=== PATIENT | female | born 1975 | race African-American/Black ===

== ENCOUNTER 2018-09-12 11:07 | Inpatient (IN) | payer BC, OTHER ==
[2018-09-12] MEDS ORDERED: BUPIVACAINE HCL/PF 0.5% (5MG/ML) 10 ML VIAL ONE (14:22)
[2018-09-12] MEDS ORDERED: MIDAZOLAM HCL 2 MG/2 ML SINGLE DOSE VIAL ONE ×2 (14:28)
[2018-09-12] MEDS ORDERED: BUPIVACAINE LIPOSOME/PF (EXPAREL) 266 MG/20 ML VIAL NR ONE (14:30)
[2018-09-12] MEDS ORDERED: HEPARIN NA (PORCINE) 5,000 UNITS/ML 1ML VIAL ONE ×2 (15:00)
[2018-09-12] MEDS ORDERED: THROMBIN (BOVINE) 5,000 UNIT VIAL TP ONE ×2 (15:00→18:04)
[2018-09-12] MEDS ORDERED: PROPOFOL 20 ML ONE ×12 (15:41→18:48)
[2018-09-12] MEDS ORDERED: SUCCINYLCHOLINE CHLORIDE 200 MG/10 ML VIAL ONE (15:41)
[2018-09-12] MEDS ORDERED: KETAMINE HCL 200 MG/20 ML VIAL ONE (15:42)
[2018-09-12] MEDS ORDERED: ceFAZolin SODIUM 1 GM VIAL ONE ×2 (16:27→19:57)
[2018-09-12] MEDS ORDERED: VANCOMYCIN 1,000 MG VIAL (RESTRICTED TO ID ONLY) ONE (16:27)
[2018-09-12] MEDS ORDERED: ceFAZolin SODIUM 1 GM VIAL IVPB ONE (16:33)
[2018-09-12] MEDS ORDERED: ROCURONIUM BROMIDE 50 MG/5 ML VIAL ONE (16:33)
[2018-09-12] MEDS ORDERED: VANCOMYCIN 1,000 MG VIAL (RESTRICTED TO ID ONLY) IVPB ONE (17:18)
[2018-09-12] MEDS ORDERED: DEXAMETHASONE SOD PHOSPHATE 4 MG/1 ML VIAL ONE (17:29)
[2018-09-12] MEDS ORDERED: ONDANSETRON 4 MG/2 ML VIAL ONE ×2 (17:29→19:57)
[2018-09-12] MEDS ORDERED: DESFLURANE GAS 240 ML BOTTLE IH ONE (18:20)
[2018-09-12] MEDS ORDERED: ONDANSETRON 4 MG/2 ML VIAL IVPUSH PRN ×2 (18:41→20:06)
[2018-09-12] MEDS ORDERED: LACTATED RINGERS SOLUTION 1,000 ML IV SCH (18:45)
--- NOTE | 2018-09-12 19:58 | PN ---
Progress Note (short form) - Note Progress Note: 43F POD #0 s/p: 1. L5, S1 laminectomies 2. L5, S1 osteotomies (facetectomies) 3. L5-S1 posterior instrumentation 4. L5-S1 posterolateral arthrodesis 5. L5-S1 posterior lumbar interbody fusion 6. L5-S1 mechanical device 7. Bone allograft 8. Bone autograft 9. Bone marrow aspiration 10. Complex wound closure -Pain control: NO NSAID's. -DVT PPx: -Mechanical only: RUSTAM's, SCD's. -Chemical: None. -Incentive spirometry. -PT/OT/Rehab, OOB. -WBAT B/L LE. -NPO until flatus. -Monitor drain output. -Beavers care; d/c when ambulating. -Post-op Ancef x 2 doses. -No bending, lifting, or twisting for 9-12 months. -Care per medical hospitalist teams. -Will follow. Gonzales Swann MD (Orthopaedic Surgery).
--- NOTE | 2018-09-12 20:02 | OP ---
Operative Note - Note: Operative Date: 09/12/18 Pre-Operative Diagnosis: 1. L5-S1 lumbar intervertebral disc disorder lower extremity radiculopathy. 2. Severe lumbar spinal stenosis with neurogenic claudication. 3. Sagittal vertical malalignment/imbalance (kyphosis). 4. Neurological decline/weakness. Operation: 1. L5, S1 laminectomies. 2. L5, S1 osteotomies (facetectomies). 3. L5-S1 posterior instrumentation. 4. L5-S1 posterolateral arthrodesis. 5. L5- S1 posterior lumbar interbody fusion. 6. L5-S1 mechanical device. 7. Bone allograft. 8. Bone autograft. 9. Bone marrow aspiration. 10. Complex wound closure Post-Operative Diagnosis: Same as Pre-op Surgeon: Gonzales Swann Real Estate Processor: Santhosh Swann Anesthesiologist/ASSISTANT BOYS TRACK COACH: Em Beverly Anesthesia: General, Local (B/L TLIP Block L5-S1) Specimens Removed: L5-S1 disc Estimated Blood Loss (mls): 400 Drains & Tubes with Location: 1 x deep HemoVac Blood Volume Replaced (mls): 150 (Cell Saver) Fluid Volume Replaced (mls): 3,000 (Crystalloid) Operative Report Dictated: Yes
[2018-09-12] MEDS ORDERED: oxyCODONE HCL 5 MG TABLET PO PRN ×2 (20:06)
[2018-09-12] MEDS ORDERED: ACETAMINOPHEN INJECTION 100 ML IVPB ONE (20:30)
[2018-09-12] MEDS: ACETAMINOPHEN 1000 MG/100 ML VIAL (NON FORMULARY) IVPB SCH (20:30)
[2018-09-12] MEDS ORDERED: HYDROmorphone *PCA* 10MG/50ML DISP.SYRIN PCA ONE (20:53)
[2018-09-12] MEDS: LACTATED RINGERS SOLUTION 1,000 ML IV SCH (20:55)
[2018-09-12] MEDS: HYDROmorphone *PCA* 10MG/50ML DISP.SYRIN PCA SCH (20:55)
--- NOTE | 2018-09-12 21:30 | OP ---
DATE OF OPERATION: DATE OF DICTATION: 09/12/2018 SURGEON: Gonzales Swann MD ROLLER MAKER: Santhosh Swann MD PREOPERATIVE DIAGNOSIS: Disc prolapse L5-S1 with failed conservative treatment. POSTOPERATIVE DIAGNOSIS: Disc Prolapse L5-S1 with failed conservative treatment with associated segmental instability. ANESTHESIA: General. OPERATION PERFORMED: 1. Laminectomy, L5. 2. Posterior lumbar interbody fusion, L5-S1. 3. Pedicle screw instrumentation, L5-S1. 4. Posterolateral arthrodesis, L5-S1. 5. Complex wound closure, 15 cm. 6. Use of biplanar fluoroscopy and intraoperative neuromonitoring. 7. Use of bone marrow aspirate concentrate with autologous bone graft and allograft. ANESTHESIA: General. PROCEDURE: Patient correctly identified, brought into the operating room. Lumbar spine was prepped, routine window draping of the lumbar spine with Betadine scrub solution, wiped off with alcohol, DuraPrep applied. Timeout was called. Imaging was available. Midline incision utilized after correct alignment under fluoroscopy of skin markers for the correct incision. Subcutaneous tissue was opened to the tip of the spinous process of soft fat. Retractors placed. The muscle was dissected off the spinous processes over the lamina over the facet joint to the tip of the transverse process, exposing the transverse process of L5 and the ala of the sacrum completely. Lateral fluoroscopic x-rays revealed the correct area for appropriate dissection accordingly. A complete laminectomy was performed using Leksell rongeurs as well as Kerrison upcuts. Osteotomes were utilized to implode the lateral vertebral canal margins inwards to get to the superior facets. This was an incision made from the pars interarticularis to the inferior facet, imploding the bone inwards and then delivering it without any complications. The superior facet readily noted and completely freeing the nerve roots appropriately. The disk in L5-S1 was identified. This was a large bulging disk. It was central. Using an annulotomy with an 11 blade, the entire disk was resected. Disk shaving was to size 11. All soft tissue removed out of the disk. Pituitary rongeurs were utilized to free all of the soft tissues appropriately and remove all the soft tissues accordingly. Once this had been performed, the interspace was packed with bone that was harvested from the posterior elements and milled in the [employer]. This was packed solidly into position, and then, the cage inserted appropriately. The cage filled with graft as well. This was a Fortilink 12 x 23 mm device. Once this had been performed, verification of position on x-ray noted. Once we were happy with this, the pedicles of L5-S1 were identified using anatomic guidelines and lateral fluoroscopic x- ray. The pedicles were drilled with a 4.5 drill. Each hole palpated with the ball- tip feeler. Each screw was then inserted, measuring 6.5 x 40 mm and each one tested with intraoperative neuromonitoring, found to be completely safe in terms of neuromonitoring parameters. A 40-mm cindy was placed to the screw heads. The screw heads were tightened appropriately. Once this had been performed, the thoracodorsal fascia through a separate compartment of the wound was lifted, and 60 mL of bone marrow was aspirated from the left posterior ilium, spun down for the CD34 cells for bone marrow aspirate concentrate. This was mixed with the graft. Graft was packed into the intertransverse plane from the L5 transverse process right onto the ala of the sacrum. Solid bone grafting performed. No complications. The wounds were thoroughly lavaged. The dura was freed of any extraneous bone. Everything appeared well aligned and completely solidly stable. Once all completed, closure as follows: This was a complex closure. Muscle 1 Vicryl, fascia 1 Vicryl, subcutaneous 1 and 2-0 Vicryl, skin 3-0 Monocryl with Steri-Strips. DRAINAGE: Hemovac 1/8-inch, deep x1. COMPLICATIONS: None. Operation went well. MD JESSA Moore/[id number] MTDD
[2018-09-12] MEDS ORDERED: DULoxetine HCL 30 MG CAPSULE.DR (FP) PO SCH (22:00)
--- NOTE | 2018-09-12 22:57 | CONSULT ---
Consult Consult Specialty:: Critical Care Referred by:: Dr. Swann Reason for Consultation:: POst operative management - History of Present Illness Chief Complaint: back pain History of Present Illness: 43F with history of severe lumbar spinal stenosis, L5-S1 lumbar intervertebral disc disorder lower extremity radiculopathy, and SVT, presents to the ICU post operatively, POD #0 s/p L5, S1 laminectomies, L5, S1 osteotomies (facetectomies) , L5-S1 posterior instrumentation, L5-S1 posterolateral arthrodesis, L5-S1 posterior lumbar interbody fusion, L5-S1 mechanical device, Bone allograft, Bone autograft, Bone marrow aspiration, and Complex wound closure. Patient tolerated the procedure well and has not had any post operative complications at this time. She feels tired and would like to sleep. She complains of incisional pain. She denies nausea, vomiting, fever, chills, chest pain, or SOB. Patient had EBL of about 400ml, got 3L Crystalloid and 150ml cell saver. - History Source History Provided By: Patient, Medical Record Limitations to Obtaining History: Clinical Condition - Past Medical History Cardio/Vascular: Yes: Other (history of SVT on verapamil) ...LMP: 07/05/18 - Alcohol/Substance Use Hx Alcohol Use: No - Smoking History Smoking history: Never smoked Home Medications - Allergies Allergies/Adverse Reactions: Allergies Allergy/AdvReac Type Severity Reaction Status Date / Time Penicillins AdvReac Intermediate Yeast Unverified 07/25/13 17:24 Infection - Home Medications Home Medications: Ambulatory Orders Verapamil HCl 360 mg PO DAILY 09/18/14 Duloxetine HCl [Cymbalta] 60 mg PO HS 09/06/18 Pentosan Polysulfate Sodium [Elmiron] 100 mg PO BID 09/06/18 traMADol HCL [Ultram -] 50 mg PO TID PRN 09/09/18 Review of Systems - Review of Systems Constitutional: reports: No Symptoms Eyes: reports: No Symptoms HENT: reports: No Symptoms Neck: reports: No Symptoms Cardiovascular: reports: No Symptoms Respiratory: reports: No Symptoms Gastrointestinal: reports: No Symptoms Musculoskeletal: reports: Back Pain Neurological: reports: Parasthesia (in lower extremities) Endocrine: reports: No Symptoms Hematology/Lymphatic: reports: No Symptoms Psychiatric: reports: No Symptoms Physical Exam Vital Signs: Vital Signs Temperature 97.8 F 09/12/18 22:51 Pulse Rate 86 09/12/18 22:51 Respiratory Rate 18 09/12/18 22:51 Blood Pressure 110/83 09/12/18 22:51 O2 Sat by Pulse Oximetry (%) 100 09/12/18 22:51 Constitutional: Yes: No Distress, Calm, Obese Eyes: Yes: Conjunctiva Clear, EOM Intact HENT: Yes: Atraumatic, Normocephalic Neck: Yes: Supple, Trachea Midline Cardiovascular: Yes: Regular Rate and Rhythm, S1, S2. No: Murmur Respiratory: Yes: Regular, CTA Bilaterally (anteriorly ausculatated due to pain on movement) Gastrointestinal: Yes: Soft. No: Tenderness Extremities: Yes: Other (bilateral upper extremity sensation intact. strength 5/ 5 in upper extremities. exam of lower extrmeities limited due to recent surgery and pain but able to wiggle toes and sensation intact.) Edema: No Wound/Incision: Yes: Clean/Dry, Well Approximated, Other (drain in place with minimal to no drainage) Neurological: Yes: Alert, Oriented, Cran Nerves II-XII Intact Psychiatric: Yes: Alert, Oriented Assessment/Plan 43F with history of back pain found to have severe lumbar spinal stenosis, L5- S1 lumbar intervertebral disc disorder lower extremity radiculopathy, and SVT, is POD #0 s/p L5-S1 laminectomies. Problem List: L5-S1 lumbar intervertebral disc disorder lower extremity radiculopathy Severe lumbar spinal stenosis with neurogenic claudication Sagittal vertical malalignment/imbalance (kyphosis) Neurological decline/weakness History of SVT obesity Plan: Admit to ICU for postoperative monitoring Pain control with MARINE ELECTRONICS REPAIRER/IV tylenol-No NSAIDs DVT PPx with SCDs no chemical PPx at this time per spine surgery PT consult-WBAT bilateral lower extremities NPO until flatus per surgery Repeat CBC BMP Mg and Phos in AM monitor drain output-no output so far. Likely D/C Wednesday Perioperative Ancef D/C east when able to ambulate restart verapamil for SVT Replete electrolytes PRN Restart Cymbalta for neuropathy CCTime 60min
[2018-09-13] MEDS ORDERED: ceFAZolin SODIUM 1 GM VIAL ONE ×3 (01:22→17:28)
[2018-09-13] MEDS ORDERED: DEXTROSE 5%-WATER - 50 ML IVPB ONE ×3 (01:22→17:29)
[2018-09-13] MEDS: CEFAZOLIN 1 GM in DEXTROSE 5%-WATER - 50 ML IVPB SCH ×3 (01:26→17:46)
[2018-09-13] MEDS: ACETAMINOPHEN 1000 MG/100 ML VIAL (NON FORMULARY) IVPB SCH ×4 (04:15→20:40)
[2018-09-13] MEDS ORDERED: METOPROLOL TARTRATE 5 MG/5 ML VIAL ONE (05:36)
[2018-09-13] MEDS ORDERED: METOPROLOL TARTRATE 5 MG/5 ML VIAL IVPUSH ONE (05:41)
[2018-09-13] MEDS: VERAPAMIL HCL 120 MG E.R. TABLET PO SCH (06:02)
[2018-09-13] MEDS: VERAPAMIL HCL 240 MG E.R. TABLET (FP) PO SCH (06:02)
[2018-09-13 06:16] LABS: HEMATOCRIT 37.6 % (32.4-45.2); MCH 28.5 pg (25.7-33.7); MCHC 31.9 g/dl (32.0-36.0); MEAN CELL VOLUME 89.3 fl (80-96); MEAN PLT VOLUME 9.2 fl (7.5-11.1); PLATELET COUNT 208 K/MM3 (134-434); RBC 4.21 M/mm3 (3.60-5.2); WHITE BLOOD COUNT 13.1 K/mm3 (4.0-10.0)
[2018-09-13 06:29] LABS: ANION GAP 10 MMOL/L (8-16); BLOOD UREA NITROGEN 9 mg/dL (7-18); CALCIUM 8.7 mg/dL (8.5-10.1); CHLORIDE 105 mmol/L (98-107); CO2 26 mmol/L (21-32); CREATININE 0.8 mg/dL (0.55-1.3); GLUCOSE,RANDOM 154 mg/dL (74-106); MAGNESIUM 1.8 mg/dL (1.8-2.4); PHOSPHOROUS 4.7 mg/dL (2.5-4.9); POTASSIUM 3.9 mmol/L (3.5-5.1); SODIUM 140 mmol/L (136-145)
[2018-09-13] MEDS ORDERED: PT OWN MED DRAWER 7, Y5N ONE (08:44)
[2018-09-13] MEDS ORDERED: VERAPAMIL HCL 120 MG E.R. TABLET PO SCH (10:00)
[2018-09-13] MEDS ORDERED: VERAPAMIL HCL 240 MG E.R. TABLET (FP) PO SCH (10:00)
[2018-09-13] MEDS ORDERED: VERAPAMIL HCL 360 MG PO SCH (10:00)
[2018-09-13] MEDS ORDERED: DULoxetine HCL 30 MG CAPSULE.DR (FP) PO ONE ×2 (10:34→22:00)
--- NOTE | 2018-09-13 12:46 | PN ---
Teaching Attending Note Name of Resident: Pete Lucero ATTENDING PHYSICIAN STATEMENT I saw and evaluated the patient. I reviewed the resident's note and discussed the case with the resident. I agree with the resident's findings and plan as documented. SUBJECTIVE: Pt seen and examined in the ICU. Pain controlled with FORENSIC PATHOLOGIST pump. No flatus yet. No nausea or vomiting. No fevers or chills. Minimal output in drain. OBJECTIVE: Vital Signs Period Temp Pulse Resp BP Sys/Jordan Pulse Ox Last 24 Hr 97.8 F-100.1 F 82-140 09-08 98-144/64-98 100-100 Intake & Output 09/10/18 09/11/18 09/12/18 09/13/18 23:59 23:59 23:59 23:59 Intake Total 3625 1150 Output Total 1450 2800 Balance 2175 -1650 Gen: NAD at rest Heart: tachycardic, regular Lung: decreased breath sounds at the bases Abd: soft, nontender Ext: no edema CBC, BMP 09/13/18 05:30 09/13/18 05:30 Active Medications Acetaminophen (Ofirmev Injection -) 1,000 mg IVPB Q8H HAY Stop: 09/14/18 12:16 Last Admin: 09/13/18 04:15 Dose: 1,000 mg Diphenhydramine HCl (Benadryl Injection -) 12.5 mg IVPUSH ONCE PRN PRN Reason: FOR ITCHING Duloxetine HCl (Cymbalta -) 60 mg PO HS HAY Duloxetine HCl (Cymbalta -) 30 mg PO ONCE ONE Stop: 09/13/18 22:01 Hydromorphone HCl (Dilaudid Tung Nut Grower -) 0 mg FORENSIC PATHOLOGIST FORENSIC PATHOLOGIST HAY; Protocol Stop: 09/19/18 20:17 Last Admin: 09/12/18 20:55 Dose: 10 mg Lactated Ringer's (Lactated Ringers Solution) 1,000 mls @ 125 mls/hr IV ASDIR HAY Last Admin: 09/12/18 20:55 Dose: 125 mls/hr Cefazolin Sodium 1 gm/ (Dextrose) 50 mls @ 100 mls/hr IVPB Q8H-IV AHY Stop: 09/13/18 18:29 Last Admin: 09/13/18 10:36 Dose: 100 mls/hr Ondansetron HCl (Zofran Injection) 4 mg IVPUSH Q6H PRN PRN Reason: NAUSEA AND/OR VOMITING Oxycodone HCl (Roxicodone -) 5 mg PO Q4H PRN PRN Reason: PAIN LEVEL 1-5 Oxycodone HCl (Roxicodone -) 10 mg PO Q4H PRN PRN Reason: PAIN LEVEL 6 - 10 Verapamil HCl (Calan Sr -) 240 mg PO DAILY@0700 [facility] Last Admin: 09/13/18 06:02 Dose: 240 mg Verapamil HCl (Calan Sr -) 120 mg PO DAILY@0700 [facility] Last Admin: 09/13/18 06:02 Dose: 120 mg ASSESSMENT AND PLAN: L5-S1 Lumbar Intervertebral Disc Disorder Severe Lumbar Spinal Stenosis with Neurogenic Claudication s/p L5-S1 Laminectomies/PLIF PSVT Anxiety - pain control - incentive spirometry - mary regimen - PO when flatus - d/c east when OOB - rehab/PT - rate control - DVT prophylaxis
--- NOTE | 2018-09-13 13:09 | PN ---
Physical Exam: SUBJECTIVE: Patient seen and examined at bedside. patient had an episode of SVT overnight which made her very anxious ; her pain is well controlled with POWER BRAKE REBUILDER pump she denies any CP/SOB/N/V fevers or chills- she has not passed flatus yet as of now. OBJECTIVE: Vital Signs Period Temp Pulse Resp BP Sys/Jordan Pulse Ox Last 24 Hr 97.8 F-100.1 F 82-140 11-22 98-144/64-98 100-100 GENERAL: The patient is awake, alert, and fully oriented, in no acute distress. EYES: no scleral icterus NECK: no JVD, no lymphadenopathy LUNGS: CTA B/L; nop rales, rhonchi or wheezing HEART: tachycardic, regularl rhythm, S1, S2 without murmur, rub or gallop. ABDOMEN: Soft, nontender, nondistended, normoactive bowel sounds, no guarding, no rebound, no hepatosplenomegaly, no masses. EXTREMITIES: 2+ pulses, warm, well-perfused, no edema. some pain/tenderness at incision site NEUROLOGICAL: sensation intact B/L; strength 5/5 B/L PSYCH: Normal mood, normal affect. SKIN: Warm, dry, normal turgor, no rashes or lesions noted Laboratory Results - last 24 hr 09/12/18 09/13/18 09/13/18 12:10 05:30 05:30 WBC 13.1 H RBC 4.21 Hgb 12.0 Hct 37.6 MCV 89.3 MCH 28.5 MCHC 31.9 L RDW 15.0 Plt Count 208 MPV 9.2 Sodium 140 Potassium 3.9 Chloride 105 Carbon Dioxide 26 Anion Gap 10 BUN 9 Creatinine 0.8 Creat Clearance w eGFR > 60 Random Glucose 154 H Calcium 8.7 Phosphorus 4.7 Magnesium 1.8 Blood Type B POSITIVE Active Medications Generic Name Dose Route Start Last Admin Trade Name Freq PRN Reason Stop Dose Admin Acetaminophen 1,000 mg 09/12/18 20:15 09/13/18 04:15 Ofirmev Injection - IVPB 09/14/18 12:16 1,000 mg Q8H HAY Administration Diphenhydramine HCl 12.5 mg 09/12/18 20:16 Benadryl Injection - IVPUSH ONCE PRN FOR ITCHING Duloxetine HCl 60 mg 09/14/18 22:00 Cymbalta - PO HS HAY Duloxetine HCl 30 mg 09/13/18 22:00 Cymbalta - PO 09/13/18 22:01 ONCE ONE Hydromorphone HCl 0 mg 09/12/18 20:30 09/12/18 20:55 Dilaudid Micro Computer Data Processor - POWER BRAKE REBUILDER 09/19/18 20:17 10 mg POWER BRAKE REBUILDER HAY Administration Protocol Lactated Ringer's 1,000 mls @ 125 mls/hr 09/12/18 20:15 09/12/18 20:55 Lactated Ringers Solution IV 125 mls/hr ASDIR HAY Administration Cefazolin Sodium 1 gm/ 50 mls @ 100 mls/hr 09/13/18 02:00 09/13/18 10:36 Dextrose IVPB 09/13/18 18:29 100 mls/hr Q8H-IV HAY Administration Ondansetron HCl 4 mg 09/12/18 20:06 Zofran Injection IVPUSH Q6H PRN NAUSEA AND/OR VOMITING Oxycodone HCl 5 mg 09/12/18 20:06 Roxicodone - PO Q4H PRN PAIN LEVEL 1-5 Oxycodone HCl 10 mg 09/12/18 20:06 Roxicodone - PO Q4H PRN PAIN LEVEL 6 - 10 Verapamil HCl 240 mg 09/13/18 07:00 09/13/18 06:02 Calan Sr - PO 240 mg DAILY@0700 HAY Administration Verapamil HCl 120 mg 09/13/18 07:00 09/13/18 06:02 Calan Sr - PO 120 mg DAILY@0700 HAY Administration ASSESSMENT/PLAN: 43 y/o female with PMH of SVT, back pain, found to have severe lumbar spinal stenosis, L5-S1 lumbar intervertebral disc disorder with lower extremity radiculopathy is POD #1 from L5-S1 laminectomies, arthrodesis, lumbar interbody fusion with bone allograft. #L5-S1 laminectomies, arthrodesis, lumbar interbody fusion POD #1 -patient has not passed flatus yet; NPO for now -pain control with POWER BRAKE REBUILDER/IV tylenol until patient can tolerate PO -Zofran PRN for nausea -PT eval -remove east once out of bed -Cymbalta for neuropathy #SVT -c/w verapamil 360 daily -monitor HR patients upholstery auto trimmer is Dr. Felipe Howard in [place] F/E/N LR @125mls/hr monitor electrolytes NPO until flatus DVT PPX SCD's Problem List - Problems (1) Lumbar spinal stenosis Code(s): M48.061 - SPINAL STENOSIS, LUMBAR REGION WITHOUT NEUROGENIC TYESHA Visit type - Emergency Visit Emergency Visit: Yes ED Registration Date: 09/12/18 Care time: The patient presented to the Emergency Department on the above date and was hospitalized for further evaluation of their emergent condition. - New Patient This patient is new to me today: Yes Date on this admission: 09/13/18 - Critical Care Critical Care patient: No
[2018-09-13] MEDS ORDERED: HYDROmorphone *PCA* 10MG/50ML DISP.SYRIN PCA ONE (13:44)
[2018-09-13] MEDS: HYDROmorphone *PCA* 10MG/50ML DISP.SYRIN PCA SCH (13:46)
--- NOTE | 2018-09-13 14:17 | PN ---
Progress Note, Physician Chief Complaint: s/p L5-S1 fusion post op day one History of Present Illness: TLIP block for post op pain control and SOCIAL PSYCHOLOGIST post op day one - Current Medication List Current Medications: Active Medications Acetaminophen (Ofirmev Injection -) 1,000 mg IVPB Q8H [facility] Stop: 09/14/18 12:16 Last Admin: 09/13/18 13:21 Dose: 1,000 mg Diphenhydramine HCl (Benadryl Injection -) 12.5 mg IVPUSH ONCE PRN PRN Reason: FOR ITCHING Duloxetine HCl (Cymbalta -) 60 mg PO HS HAY Duloxetine HCl (Cymbalta -) 30 mg PO ONCE ONE Stop: 09/13/18 22:01 Hydromorphone HCl (Dilaudid Station Operator -) 0 mg SOCIAL PSYCHOLOGIST SOCIAL PSYCHOLOGIST [facility]; Protocol Stop: 09/19/18 20:17 Last Admin: 09/13/18 13:46 Dose: 0.2 mg Lactated Ringer's (Lactated Ringers Solution) 1,000 mls @ 125 mls/hr IV ASDIR HAY Last Admin: 09/12/18 20:55 Dose: 125 mls/hr Cefazolin Sodium 1 gm/ (Dextrose) 50 mls @ 100 mls/hr IVPB Q8H-IV HAY Stop: 09/13/18 18:29 Last Admin: 09/13/18 10:36 Dose: 100 mls/hr Ondansetron HCl (Zofran Injection) 4 mg IVPUSH Q6H PRN PRN Reason: NAUSEA AND/OR VOMITING Oxycodone HCl (Roxicodone -) 5 mg PO Q4H PRN PRN Reason: PAIN LEVEL 1-5 Oxycodone HCl (Roxicodone -) 10 mg PO Q4H PRN PRN Reason: PAIN LEVEL 6 - 10 Verapamil HCl (Calan Sr -) 240 mg PO DAILY@0700 [facility] Last Admin: 09/13/18 06:02 Dose: 240 mg Verapamil HCl (Calan Sr -) 120 mg PO DAILY@0700 [facility] Last Admin: 09/13/18 06:02 Dose: 120 mg - Objective Vital Signs: Vital Signs Temperature 99.4 F 09/13/18 13:43 Pulse Rate 110 H 09/13/18 13:46 Respiratory Rate 15 09/13/18 13:46 Blood Pressure 134/89 09/13/18 13:46 O2 Sat by Pulse Oximetry (%) 100 09/13/18 07:38 Constitutional: Yes: Well Nourished Cardiovascular: Yes: WNL Respiratory: Yes: WNL Gastrointestinal: Yes: WNL Labs: CBC, BMP 09/13/18 05:30 09/13/18 05:30 Assessment/Plan No adverse effect of anesthetic, no nausea or vomiting, pain controlled, had episode of SVT overnight. stated that she is on medication for that chronically , now resolved. will continue SOCIAL PSYCHOLOGIST, and will follow the patient until SOCIAL PSYCHOLOGIST is discontinued
[2018-09-13] MEDS ORDERED: DOCUSATE SODIUM 100 MG CAPSULE (FP) PO PRN (14:38)
[2018-09-13] MEDS ORDERED: SENNOSIDES 8.6MG TABLET (FP) PO PRN (14:39)
--- NOTE | 2018-09-13 14:40 | PN ---
Physical Exam: SUBJECTIVE: Pt seen and examined in the ICU. POD #1 s/p L5-S1 laminectomies. Pain controlled with IN STORE BANKER pump. No flatus yet. No nausea or vomiting. No fevers or chills. Minimal output in drain. Overnight was tachy SVT, ctl w/ lopressor IV and now home verapamil resumed OBJECTIVE: Vital Signs Period Temp Pulse Resp BP Sys/Jordan Pulse Ox Last 24 Hr 97.8 F-100.1 F 82-140 11-22 98-144/64-98 100-100 GENERAL: AOX3 NAD HEAD: NCAT EYES: PERRL, extraocular movements intact, sclera anicteric, conjunctiva clear. No ptosis. ENT: Ears normal, nares patent, oropharynx clear without exudates, MMM NECK: Trachea midline, full range of motion, supple. LUNGS: CTAB HEART: RRR, S1, S2 without murmur, rub or gallop. ABDOMEN: Soft, NTND, normoactive bowel sounds EXTREMITIES: 2+ pulses, warm, well-perfused, no edema. NEUROLOGICAL: Cranial nerves II through XII grossly intact. Normal speech, gait not observed. strength sensation grossly intact PSYCH: Normal mood, normal affect. SKIN: Warm, dry, normal turgor, no rashes or lesions noted Laboratory Results - last 24 hr 09/13/18 09/13/18 05:30 05:30 WBC 13.1 H RBC 4.21 Hgb 12.0 Hct 37.6 MCV 89.3 MCH 28.5 MCHC 31.9 L RDW 15.0 Plt Count 208 MPV 9.2 Sodium 140 Potassium 3.9 Chloride 105 Carbon Dioxide 26 Anion Gap 10 BUN 9 Creatinine 0.8 Creat Clearance w eGFR > 60 Random Glucose 154 H Calcium 8.7 Phosphorus 4.7 Magnesium 1.8 Active Medications Generic Name Dose Route Start Last Admin Trade Name Freq PRN Reason Stop Dose Admin Acetaminophen 1,000 mg 09/12/18 20:15 09/13/18 13:21 Ofirmev Injection - IVPB 09/14/18 12:16 1,000 mg Q8H HAY Administration Diphenhydramine HCl 12.5 mg 09/12/18 20:16 Benadryl Injection - IVPUSH ONCE PRN FOR ITCHING Duloxetine HCl 60 mg 09/14/18 22:00 Cymbalta - PO HS HAY Duloxetine HCl 30 mg 09/13/18 22:00 Cymbalta - PO 09/13/18 22:01 ONCE ONE Hydromorphone HCl 0 mg 09/12/18 20:30 09/13/18 13:46 Dilaudid Cooker Sulfate - IN STORE BANKER 09/19/18 20:17 0.2 mg IN STORE BANKER HAY Administration Protocol Lactated Ringer's 1,000 mls @ 125 mls/hr 09/12/18 20:15 09/12/18 20:55 Lactated Ringers Solution IV 125 mls/hr ASDIR HAY Administration Cefazolin Sodium 1 gm/ 50 mls @ 100 mls/hr 09/13/18 02:00 09/13/18 10:36 Dextrose IVPB 09/13/18 18:29 100 mls/hr Q8H-IV HAY Administration Ondansetron HCl 4 mg 09/12/18 20:06 Zofran Injection IVPUSH Q6H PRN NAUSEA AND/OR VOMITING Oxycodone HCl 5 mg 09/12/18 20:06 Roxicodone - PO Q4H PRN PAIN LEVEL 1-5 Oxycodone HCl 10 mg 09/12/18 20:06 Roxicodone - PO Q4H PRN PAIN LEVEL 6 - 10 Verapamil HCl 240 mg 09/13/18 07:00 09/13/18 06:02 Calan Sr - PO 240 mg DAILY@0700 HAY Administration Verapamil HCl 120 mg 09/13/18 07:00 09/13/18 06:02 Calan Sr - PO 120 mg DAILY@0700 HAY Administration ASSESSMENT/PLAN: 43 y/o female with PMH of SVT, back pain, found to have severe lumbar spinal stenosis, L5-S1 lumbar intervertebral disc disorder with lower extremity radiculopathy is POD #1 from L5-S1 laminectomies, arthrodesis, lumbar interbody fusion with bone allograft. NEURO/ORTHO/POST-OP/RENAL L5-S1 laminectomies, arthrodesis, lumbar interbody fusion POD #1 -patient has not passed flatus yet; NPO for now -Zofran PRN for nausea -Cymbalta for neuropathy -Pain control with IN STORE BANKER/IV tylenol-No NSAIDs -bowel regimen -DVT PPx with SCDs no chemical PPx at this time per spine surgery -PT consult-WBAT bilateral lower extremities -monitor drain output-no output so far. Likely D/C Wednesday -s/p Perioperative Ancef -D/C east when able to ambulate -restart verapamil for SVT -monitor Cr -Incentive spirometry. -No bending, lifting, or twisting for 9-12 months. CARDIAC SVT -c/w verapamil 360 daily -monitor HR patients financial advocate is Dr. Felipe Howard in [place] Maintain MAP>65 cardiac monitoring F/E/N LR @125mls/hr monitor electrolytes NPO until flatus ppx SCD's Dispo ICU monitoring Visit type - Emergency Visit Emergency Visit: Yes ED Registration Date: 09/12/18 Care time: The patient presented to the Emergency Department on the above date and was hospitalized for further evaluation of their emergent condition. - New Patient This patient is new to me today: Yes Date on this admission: 09/13/18 - Critical Care Critical Care patient: Yes Total Critical Care Time (in minutes): 38 Critical Care Statement: The care of this patient involved high complexity decision making to prevent further life threatening deterioration of the patient 's condition and/or to evaluate & treat vital organ system(s) failure or risk of failure.
--- NOTE | 2018-09-13 15:31 | PN ---
Teaching Attending Note Name of Resident: Marguerite Venegas ATTENDING PHYSICIAN STATEMENT I saw and evaluated the patient. I reviewed the resident's note and discussed the case with the resident. I agree with the resident's findings and plan as documented. SUBJECTIVE: c/o incision pain and pain on movement. states pain is controlled with PAROLE SUPERVISOR pump. has not passed flatus. denies CP, SOB, fever, chills, N/V/C/D OBJECTIVE: Last Vital Signs Temp Pulse Resp BP Pulse Ox 99.4 F 90 16 134/89 100 09/13/18 14:00 09/13/18 14:00 09/13/18 14:00 09/13/18 14:00 09/13/18 07:38 General NAD CV S1 S2 RRR no murmur/rub/gallop Lungs CTA B/L no wheezing/rales/rhonchi abdomen soft NT/ND Extremities pulses intact. difficulty moving LE due to back pain pt was not rolled due to severe pain ASSESSMENT AND PLAN: 43yo F with PMH SVT and severe lumbar stenosis and radiculopathy who came in for laminectomy 1. Severe lumbar stenosis with radiulopathy- s/p L5, S1 laminectomies, L5, S1 osteotomies (facetectomies), L5-S1 posterior instrumentation, L5-S1 posterolateral arthrodesis, L5-S1 posterior lumbar interbody fusion, L5-S1 mechanical device, Bone allograft, Bone autograft, Bone marrow aspiration, and Complex wound closure 09/12. on PAROLE SUPERVISOR pump. has not passed flatus. NPO until flatus. Bea[place] until ambulating. hemovac in place. post-op abx. further management per ortho. PT eval. may require VARGAS on discharge 2. leukcytosis- likely stress induced. no signs of infection. afebrile. received abx post-operatively. would hold further abx at this time 3. SVT- controlled. cont home medications 4. DVT ppx- SCD. hold pharmacolgic anticoagulation in setting of recent surgery 5. MICU monitoring The care of this patient involved high complexity decision making to prevent further life threatening deterioration of the patient's condition and/or to evaluate & treat vital organ system(s) failure or risk of failure. 45 mins
[2018-09-13] MEDS ORDERED: ALBUTEROL SO4 2.5/IPRATROPIUM 0.5 INH SOL 3 ML VIAL.NEB. NEB ONE (16:39)
--- NOTE | 2018-09-13 19:48 | PN ---
Progress Note (short form) - Note Progress Note: POD # 1 Original pain gone C/O incisional pain No leg pain Vitals all stable as per chart. CVS Stable Resp Clear ABD Soft no flatus as yet MSkeletal Drain in situ Wound dry. Neuro At baseline PLAN Will pull drain tomorrow Pain MX PT mobilize FWBAT D/c planning
[2018-09-13] MEDS: LACTATED RINGERS SOLUTION 1,000 ML IV SCH (20:15)
[2018-09-13] MEDS ORDERED: DULoxetine HCL 30 MG CAPSULE.DR (FP) PO SCH (22:00)
[2018-09-13] MEDS: ELMIRON 100 MG PO SCH (22:13)
[2018-09-14] MEDS ORDERED: METOPROLOL TARTRATE 5 MG/5 ML VIAL IVPUSH ONE (00:10)
[2018-09-14] MEDS: ACETAMINOPHEN 1000 MG/100 ML VIAL (NON FORMULARY) IVPB SCH ×2 (04:20→12:47)
[2018-09-14 06:34] LABS: HEMATOCRIT 33.5 % (32.4-45.2); MCH 29.1 pg (25.7-33.7); MCHC 32.8 g/dl (32.0-36.0); MEAN CELL VOLUME 88.7 fl (80-96); MEAN PLT VOLUME 8.9 fl (7.5-11.1); PLATELET COUNT 177 K/MM3 (134-434); RBC 3.78 M/mm3 (3.60-5.2); RDW 15.2 % (11.6-15.6); WHITE BLOOD COUNT 8.2 K/mm3 (4.0-10.0)
[2018-09-14] MEDS: VERAPAMIL HCL 240 MG E.R. TABLET (FP) PO SCH (06:34)
[2018-09-14] MEDS: VERAPAMIL HCL 120 MG E.R. TABLET PO SCH (06:34)
[2018-09-14 08:15] LABS: ALBUMIN 2.8 g/dl (3.4-5.0); ALK PHOS 79 U/L (45-117); ANION GAP 6 MMOL/L (8-16); BILIRUBIN,TOTAL 0.7 mg/dL (0.2-1); BLOOD UREA NITROGEN 8 mg/dL (7-18); CALCIUM 8.3 mg/dL (8.5-10.1); CHLORIDE 102 mmol/L (98-107); CO2 29 mmol/L (21-32); CREATININE 0.7 mg/dL (0.55-1.3); GLUCOSE,RANDOM 111 mg/dL (74-106); MAGNESIUM 1.9 mg/dL (1.8-2.4); PHOSPHOROUS 3.6 mg/dL (2.5-4.9); SGOT/AST 42 U/L (15-37); SGPT/ALT 23 U/L (13-61); SODIUM 137 mmol/L (136-145); TOT PROT 6.1 g/dl (6.4-8.2)
--- NOTE | 2018-09-14 09:03 | PN ---
Physical Exam: SUBJECTIVE: Patient seen and examined at beside. patient had some shortness of breath overnight and did not receive her incentive spirometer until late last night. she also had en episode of an increased HR overnight where she needed to receive 5mg IV metoprolol tartrate. otherwise in terms of her pain she denies having any. patients drain was removed. OBJECTIVE: Vital Signs Period Temp Pulse Resp BP Sys/Jordan Pulse Ox Last 24 Hr 98.2 F-100.1 F 83-143 12-22 107-141/65-98 100 GENERAL: The patient is awake, alert, and fully oriented, in no acute distress. EYES: no scleral icterus NECK: no JVD, no lymphadenopathy LUNGS:CTA B/L; no rales, rhonchi or wheezing HEART: tachycardic, regular rhythm, S1, S2 without murmur, rub or gallop. ABDOMEN: Soft, nontender, nondistended, normoactive bowel sounds, no guarding, no rebound, no hepatosplenomegaly, no masses. EXTREMITIES: 2+ pulses, warm, well-perfused, no edema; slight pain at incision sight. NEUROLOGICAL: sensation intact B/L; strength 5/5 B/L SKIN: Warm, dry, normal turgor, no rashes or lesions noted Laboratory Results - last 24 hr 09/14/18 09/14/18 05:30 05:30 WBC 8.2 RBC 3.78 Hgb 11.0 Hct 33.5 MCV 88.7 MCH 29.1 MCHC 32.8 RDW 15.2 Plt Count 177 MPV 8.9 Sodium 137 Potassium 4.0 Chloride 102 Carbon Dioxide 29 Anion Gap 6 L BUN 8 Creatinine 0.7 Creat Clearance w eGFR > 60 Random Glucose 111 H Calcium 8.3 L Phosphorus 3.6 Magnesium 1.9 Total Bilirubin 0.7 AST 42 H ALT 23 Alkaline Phosphatase 79 Total Protein 6.1 L Albumin 2.8 L Active Medications Generic Name Dose Route Start Last Admin Trade Name Freq PRN Reason Stop Dose Admin Acetaminophen 1,000 mg 09/12/18 20:15 09/14/18 04:20 Ofirmev Injection - IVPB 09/14/18 12:16 1,000 mg Q8H HAY Administration Diphenhydramine HCl 12.5 mg 09/12/18 20:16 Benadryl Injection - IVPUSH ONCE PRN FOR ITCHING Docusate Sodium 100 mg 09/13/18 14:38 09/14/18 07:51 Colace - PO 100 mg BID PRN Administration CONSTIPATION Duloxetine HCl 60 mg 09/13/18 22:00 09/13/18 22:12 Cymbalta - PO 60 mg HS HAY Administration Hydromorphone HCl 0 mg 09/12/18 20:30 09/13/18 13:46 Dilaudid Manager Hematology - CLOTHING WORKER 09/19/18 20:17 0.2 mg CLOTHING WORKER HAY Administration Protocol Lactated Ringer's 1,000 mls @ 125 mls/hr 09/12/18 20:15 09/13/18 20:15 Lactated Ringers Solution IV 125 mls/hr ASDIR HAY Administration Patient's Own 1 each 09/13/18 22:00 09/13/18 22:13 Medication (Non- PO 1 each Formulary) (Elmiron BID HAY Administration 100mg Cap) Ondansetron HCl 4 mg 09/12/18 20:06 Zofran Injection IVPUSH Q6H PRN NAUSEA AND/OR VOMITING Oxycodone HCl 5 mg 09/12/18 20:06 Roxicodone - PO Q4H PRN PAIN LEVEL 1-5 Oxycodone HCl 10 mg 09/12/18 20:06 Roxicodone - PO Q4H PRN PAIN LEVEL 6 - 10 Senna 2 tab 09/13/18 14:39 Senna - PO HS PRN CONSTIPATION Verapamil HCl 240 mg 09/13/18 07:00 09/14/18 06:34 Calan Sr - PO 240 mg DAILY@0700 HAY Administration Verapamil HCl 120 mg 09/13/18 07:00 09/14/18 06:34 Calan Sr - PO 120 mg DAILY@0700 HAY Administration ASSESSMENT/PLAN: 43 y/o female with PMH of SVT, back pain, found to have severe lumbar spinal stenosis, L5-S1 lumbar intervertebral disc disorder with lower extremity radiculopathy is POD #2 from L5-S1 laminectomies, arthrodesis, lumbar interbody fusion with bone allograft. #L5-S1 laminectomies, arthrodesis, lumbar interbody fusion POD #2 -patient has not passed flatus yet; NPO for now except meds -senna and colace for bowel regimen -d/c CLOTHING WORKER and c/w PO pain meds -incentive spirometer -Zofran PRN for nausea -Patient saw PT yesterday and stoof -remove east once out of bed -Cymbalta for neuropathy #SVT -c/w verapamil 360 daily -monitor HR patients fleet assistant is Dr. Felipe [place] F/E/N LR @125mls/hr monitor electrolytes NPO until flatus DVT PPX SCD's Problem List - Problems (1) Lumbar spinal stenosis Code(s): M48.061 - SPINAL STENOSIS, LUMBAR REGION WITHOUT NEUROGENIC TYESHA Visit type - Emergency Visit Emergency Visit: Yes ED Registration Date: 09/12/18 Care time: The patient presented to the Emergency Department on the above date and was hospitalized for further evaluation of their emergent condition. - New Patient This patient is new to me today: No - Critical Care Critical Care patient: No
[2018-09-14] MEDS ORDERED: POLYETHYLENE GLYCOL 3350 119 GM BTL PO ONE (09:33)
[2018-09-14] MEDS: ELMIRON 100 MG PO SCH (09:49)
[2018-09-14] MEDS ORDERED: BENZOCAINE/MENTH/CETYLPYRD CL 1 EACH LOZENGE MM PRN (10:29)
--- NOTE | 2018-09-14 11:45 | PN ---
Teaching Attending Note Name of Resident: Pete Lucero ATTENDING PHYSICIAN STATEMENT I saw and evaluated the patient. I reviewed the resident's note and discussed the case with the resident. I agree with the resident's findings and plan as documented. SUBJECTIVE: Pt seen and examined in the ICU. Pain controlled. No flatus yet. Stood with PT yesterday. No fevers or chills. Heart rates variable. OBJECTIVE: Vital Signs Period Temp Pulse Resp BP Sys/Jodran Pulse Ox Last 24 Hr 98.2 F-100.0 F 83-143 12-22 102-141/65-98 100 Intake & Output 09/11/18 09/12/18 09/13/18 09/14/18 23:59 23:59 23:59 23:59 Intake Total 3625 2750 1700 Output Total 1450 5200 1100 Balance 2175 -2450 600 Weight 82.3 kg Gen: NAD at rest Heart: RRR Lung: decreased breath sounds at the bases Abd: soft, nontender Ext: no edema CBC, BMP 09/14/18 05:30 09/14/18 05:30 Active Medications Acetaminophen (Ofirmev Injection -) 1,000 mg IVPB Q8H HAY Stop: 09/14/18 12:16 Last Admin: 09/14/18 04:20 Dose: 1,000 mg Benzocaine/Menthol (Cepacol Lozenge -) 1 each MM PRN PRN PRN Reason: SORE THROAT Diphenhydramine HCl (Benadryl Injection -) 12.5 mg IVPUSH ONCE PRN PRN Reason: FOR ITCHING Docusate Sodium (Colace -) 100 mg PO BID PRN PRN Reason: CONSTIPATION Last Admin: 09/14/18 07:51 Dose: 100 mg Duloxetine HCl (Cymbalta -) 60 mg PO HS HAY Last Admin: 09/13/18 22:12 Dose: 60 mg Hydromorphone HCl (Dilaudid [employer] -) 0 mg PATIENT LIAISON PATIENT LIAISON HAY; Protocol Stop: 09/19/18 20:17 Last Admin: 09/13/18 13:46 Dose: 0.2 mg Lactated Ringer's (Lactated Ringers Solution) 1,000 mls @ 125 mls/hr IV ASDIR HAY Last Admin: 09/13/18 20:15 Dose: 125 mls/hr Patient's Own Medication (Non- Formulary) (Elmiron 100mg Cap) 1 each PO BID [facility] Last Admin: 09/14/18 09:49 Dose: 1 each Ondansetron HCl (Zofran Injection) 4 mg IVPUSH Q6H PRN PRN Reason: NAUSEA AND/OR VOMITING Oxycodone HCl (Roxicodone -) 5 mg PO Q4H PRN PRN Reason: PAIN LEVEL 1-5 Oxycodone HCl (Roxicodone -) 10 mg PO Q4H PRN PRN Reason: PAIN LEVEL 6 - 10 Senna (Senna -) 2 tab PO HS PRN PRN Reason: CONSTIPATION Verapamil HCl (Calan Sr -) 240 mg PO DAILY@0700 [facility] Last Admin: 09/14/18 06:34 Dose: 240 mg Verapamil HCl (Calan Sr -) 120 mg PO DAILY@0700 [facility] Last Admin: 09/14/18 06:34 Dose: 120 mg ASSESSMENT AND PLAN: L5-S1 Lumbar Intervertebral Disc Disorder Severe Lumbar Spinal Stenosis with Neurogenic Claudication s/p L5-S1 Laminectomies/PLIF PSVT Anxiety - pain control - incentive spirometry - bowel regimen - PO when flatus - d/c east when OOB - rehab/PT - rate control - DVT prophylaxis - can monitor on telemetry
--- NOTE | 2018-09-14 12:04 | PN ---
Physical Exam: SUBJECTIVE: Pt seen and examined in the ICU. POD #2 s/p L5-S1 laminectomies. Pain controlled with LOG FEEDER pump. No flatus yet. No nausea or vomiting. No fevers or chills. Minimal output in drain. Overnight was tachy SVT, ctl w/ lopressor IV and home verapamil. Stood up with PT yesterday OBJECTIVE: Vital Signs Period Temp Pulse Resp BP Sys/Jordan Pulse Ox Last 24 Hr 98.2 F-100.0 F 83-143 12-22 102-141/65-91 100 GENERAL: AOX3 NAD HEAD: NCAT EYES: PERRL, extraocular movements intact, sclera anicteric, conjunctiva clear. No ptosis. ENT: Ears normal, nares patent, oropharynx clear without exudates, MMM NECK: Trachea midline, full range of motion, supple. LUNGS: CTAB HEART: RRR, S1, S2 without murmur, rub or gallop. ABDOMEN: Soft, NTND, normoactive bowel sounds EXTREMITIES: 2+ pulses, warm, well-perfused, no edema. NEUROLOGICAL: Cranial nerves II through XII grossly intact. Normal speech, gait not observed. strength sensation grossly intact PSYCH: Normal mood, normal affect. SKIN: Warm, dry, normal turgor, no rashes or lesions noted Laboratory Results - last 24 hr 09/14/18 09/14/18 05:30 05:30 WBC 8.2 RBC 3.78 Hgb 11.0 Hct 33.5 MCV 88.7 MCH 29.1 MCHC 32.8 RDW 15.2 Plt Count 177 MPV 8.9 Sodium 137 Potassium 4.0 Chloride 102 Carbon Dioxide 29 Anion Gap 6 L BUN 8 Creatinine 0.7 Creat Clearance w eGFR > 60 Random Glucose 111 H Calcium 8.3 L Phosphorus 3.6 Magnesium 1.9 Total Bilirubin 0.7 AST 42 H ALT 23 Alkaline Phosphatase 79 Total Protein 6.1 L Albumin 2.8 L Active Medications Generic Name Dose Route Start Last Admin Trade Name Freq PRN Reason Stop Dose Admin Acetaminophen 1,000 mg 09/12/18 20:15 09/14/18 04:20 Ofirmev Injection - IVPB 09/14/18 12:16 1,000 mg Q8H HAY Administration Benzocaine/Menthol 1 each 09/14/18 10:29 Cepacol Lozenge - MM PRN PRN SORE THROAT Diphenhydramine HCl 12.5 mg 09/12/18 20:16 Benadryl Injection - IVPUSH ONCE PRN FOR ITCHING Docusate Sodium 100 mg 09/13/18 14:38 09/14/18 07:51 Colace - PO 100 mg BID PRN Administration CONSTIPATION Duloxetine HCl 60 mg 09/13/18 22:00 09/13/18 22:12 Cymbalta - PO 60 mg HS HAY Administration Hydromorphone HCl 0 mg 09/12/18 20:30 09/13/18 13:46 Dilaudid Health Care / Medical Job Titles - LOG FEEDER 09/19/18 20:17 0.2 mg LOG FEEDER HAY Administration Protocol Lactated Ringer's 1,000 mls @ 125 mls/hr 09/12/18 20:15 09/13/18 20:15 Lactated Ringers Solution IV 125 mls/hr ASDIR HAY Administration Patient's Own 1 each 09/13/18 22:00 09/14/18 09:49 Medication (Non- PO 1 each Formulary) (Elmiron BID HAY Administration 100mg Cap) Ondansetron HCl 4 mg 09/12/18 20:06 Zofran Injection IVPUSH Q6H PRN NAUSEA AND/OR VOMITING Oxycodone HCl 5 mg 09/12/18 20:06 Roxicodone - PO Q4H PRN PAIN LEVEL 1-5 Oxycodone HCl 10 mg 09/12/18 20:06 Roxicodone - PO Q4H PRN PAIN LEVEL 6 - 10 Senna 2 tab 09/13/18 14:39 Senna - PO HS PRN CONSTIPATION Verapamil HCl 240 mg 09/13/18 07:00 09/14/18 06:34 Calan Sr - PO 240 mg DAILY@0700 HAY Administration Verapamil HCl 120 mg 09/13/18 07:00 09/14/18 06:34 Calan Sr - PO 120 mg DAILY@0700 HAY Administration ASSESSMENT/PLAN: 43 y/o female with PMH of SVT, back pain, found to have severe lumbar spinal stenosis, L5-S1 lumbar intervertebral disc disorder with lower extremity radiculopathy is POD #2 from L5-S1 laminectomies, arthrodesis, lumbar interbody fusion with bone allograft. NEURO/ORTHO/POST-OP/RENAL L5-S1 laminectomies, arthrodesis, lumbar interbody fusion POD #2 -patient has not passed flatus yet; NPO for now -Zofran PRN for nausea -Cymbalta for neuropathy -Pain control with LOG FEEDER/IV tylenol-No NSAIDs -bowel regimen -DVT PPx with SCDs no chemical PPx at this time per spine surgery -Stood up with PT yesterday -monitor drain output-no output so far. Likely D/C today -s/p Perioperative Ancef -D/C east when able to ambulate -monitor Cr -Incentive spirometry. -No bending, lifting, or twisting for 9-12 months. CARDIAC SVT -c/w verapamil 360 daily for SVT -IV lopressor prn for SVT -monitor HR patients rod pointer is Dr. Felipe Howard in [place] Maintain MAP>65 cardiac monitoring F/E/N LR @125mls/hr monitor electrolytes NPO until flatus ppx SCD's Dispo pt stable for transfer to tele. further care per primary team/PCP Visit type - Emergency Visit Emergency Visit: Yes ED Registration Date: 09/12/18 Care time: The patient presented to the Emergency Department on the above date and was hospitalized for further evaluation of their emergent condition. - New Patient This patient is new to me today: Yes Date on this admission: 09/14/18 - Critical Care Critical Care patient: Yes Total Critical Care Time (in minutes): 38 Critical Care Statement: The care of this patient involved high complexity decision making to prevent further life threatening deterioration of the patient 's condition and/or to evaluate & treat vital organ system(s) failure or risk of failure.
[2018-09-14] MEDS ORDERED: HYDROmorphone *PCA* 10MG/50ML DISP.SYRIN PCA ONE (12:59)
[2018-09-14 13:05] VITALS: BMI 32.1
[2018-09-14] MEDS ORDERED: HYDROmorphone *PCA* 10MG/50ML DISP.SYRIN PCA SCH ×2 (13:21→14:53)
[2018-09-14] MEDS: HYDROmorphone *PCA* 10MG/50ML DISP.SYRIN PCA SCH ×3 (13:25→14:55)
[2018-09-14] MEDS ORDERED: PT OWN MED DRAWER 7, Y5N ONE ×2 (13:44→14:10)
--- NOTE | 2018-09-14 13:51 | PN ---
Progress Note, Physician Chief Complaint: day 2 s/p PLIF on SUPERVISOR FERTILIZER - Current Medication List Current Medications: Active Medications Benzocaine/Menthol (Cepacol Lozenge -) 1 each MM PRN PRN PRN Reason: SORE THROAT Diphenhydramine HCl (Benadryl Injection -) 12.5 mg IVPUSH ONCE PRN PRN Reason: FOR ITCHING Docusate Sodium (Colace -) 100 mg PO BID PRN PRN Reason: CONSTIPATION Last Admin: 09/14/18 07:51 Dose: 100 mg Duloxetine HCl (Cymbalta -) 60 mg PO HS [facility] Last Admin: 09/13/18 22:12 Dose: 60 mg Hydromorphone HCl (Dilaudid Elevated Guard -) 10 mg SUPERVISOR FERTILIZER SUPERVISOR FERTILIZER [facility]; Protocol Stop: 09/19/18 20:17 Last Admin: 09/14/18 13:29 Dose: 10 mg Lactated Ringer's (Lactated Ringers Solution) 1,000 mls @ 125 mls/hr IV ASDIR [facility] Last Admin: 09/13/18 20:15 Dose: 125 mls/hr Patient's Own Medication (Non- Formulary) (Elmiron 100mg Cap) 1 each PO BID [facility] Last Admin: 09/14/18 09:49 Dose: 1 each Ondansetron HCl (Zofran Injection) 4 mg IVPUSH Q6H PRN PRN Reason: NAUSEA AND/OR VOMITING Oxycodone HCl (Roxicodone -) 5 mg PO Q4H PRN PRN Reason: PAIN LEVEL 1-5 Oxycodone HCl (Roxicodone -) 10 mg PO Q4H PRN PRN Reason: PAIN LEVEL 6 - 10 Senna (Senna -) 2 tab PO HS PRN PRN Reason: CONSTIPATION Verapamil HCl (Calan Sr -) 240 mg PO DAILY@0700 [facility] Last Admin: 09/14/18 06:34 Dose: 240 mg Verapamil HCl (Calan Sr -) 120 mg PO DAILY@0700 [facility] Last Admin: 09/14/18 06:34 Dose: 120 mg - Objective Vital Signs: Vital Signs Temperature 98.9 F 09/14/18 11:00 Pulse Rate 115 H 09/14/18 13:29 Respiratory Rate 15 09/14/18 13:29 Blood Pressure 105/67 09/14/18 13:29 O2 Sat by Pulse Oximetry (%) 100 09/14/18 09:00 Labs: CBC, BMP 09/14/18 05:30 09/14/18 05:30 Assessment/Plan Pt's pain is well controlled on SUPERVISOR FERTILIZER today. It was worse in am, but much improved at this point. Will continue SUPERVISOR FERTILIZER for now
--- NOTE | 2018-09-14 14:01 | PN ---
Teaching Attending Note Name of Resident: Marguerite Venegas ATTENDING PHYSICIAN STATEMENT I saw and evaluated the patient. I reviewed the resident's note and discussed the case with the resident. I agree with the resident's findings and plan as documented. SUBJECTIVE:currently c/o incisional pain that is not relieved ith COFFERDAM CONSTRUCTION SUPERVISOR pump. states she had no symptoms last night when she was noted to be in sinus tach. states she does have intermittent palpitations especially at night but did not experience last night. states her dose has not been adjusted for a long time. denies CP, SOB, fever, chills, N/V/C/D, pain or tingling of the LE OBJECTIVE: Last Vital Signs Temp Pulse Resp BP Pulse Ox 98.9 F 115 H 15 105/67 100 09/14/18 11:00 09/14/18 13:29 09/14/18 13:29 09/14/18 13:29 09/14/18 09:00 General NAD CV S1 S2 RRR no murmur/rub/gallop Lungs CTA B/L no wheezing/rales/rhonchi abdomen soft NT/ND Extremities pulses intact. refused further examination of the LE ASSESSMENT AND PLAN: 43yo F with PMH SVT and severe lumbar stenosis and radiculopathy who came in for laminectomy 1. Severe lumbar stenosis with radiulopathy- s/p L5, S1 laminectomies, L5, S1 osteotomies (facetectomies), L5-S1 posterior instrumentation, L5-S1 posterolateral arthrodesis, L5-S1 posterior lumbar interbody fusion, L5-S1 mechanical device, Bone allograft, Bone autograft, Bone marrow aspiration, and Complex wound closure 09/12. on COFFERDAM CONSTRUCTION SUPERVISOR pump. has not passed flatus. NPO until flatus. [place] until ambulating. hemovac in place. post-op abx. further management per ortho. PT eval. may require VARGAS on discharge 2. leukcytosis- likely stress induced. no signs of infection. now resolved. would hold further abx at this time 3. SVT-episode last night of Sinus tachycardia at 140's. responded to metoprolol 5mg IVP. possible can be due to pain although was not eliciting at the time of the event. now is more controlled. will try to optimize her pain control. keep hydrated. no sign of infection. can consider increasing medication although patient appears in sinus. 4. DVT ppx- SCD. hold pharmacolgic anticoagulation in setting of recent surgery 5. can transfer to tele for continued cardiac monitoring The care of this patient involved high complexity decision making to prevent further life threatening deterioration of the patient's condition and/or to evaluate & treat vital organ system(s) failure or risk of failure. 40 mins
[2018-09-14] MEDS ORDERED: DOCUSATE SODIUM 100 MG CAPSULE (FP) PO PRN (14:53)
[2018-09-14] MEDS ORDERED: oxyCODONE HCL 5 MG TABLET PO PRN (14:53)
[2018-09-14] MEDS ORDERED: ONDANSETRON 4 MG/2 ML VIAL IVPUSH PRN (14:53)
[2018-09-14] MEDS ORDERED: BUPIVACAINE LIPOSOME/PF (EXPAREL) 266 MG/20 ML VIAL NR ONE (14:53)
[2018-09-14] MEDS ORDERED: SENNOSIDES 8.6MG TABLET (FP) PO PRN (14:53)
[2018-09-14] MEDS: LACTATED RINGERS SOLUTION 1,000 ML IV SCH (15:00)
[2018-09-14] MEDS: BENZOCAINE/MENTH/CETYLPYRD CL 1 EACH LOZENGE MM PRN (17:02)
[2018-09-14] MEDS: ACETAMINOPHEN 325 MG TABLET (FP) PO PRN (21:06)
[2018-09-14] MEDS: DULoxetine HCL 30 MG CAPSULE.DR (FP) PO SCH (21:08)
[2018-09-14] MEDS ORDERED: DULoxetine HCL 30 MG CAPSULE.DR (FP) PO SCH (22:00)
[2018-09-15] MEDS: VERAPAMIL HCL 240 MG E.R. TABLET (FP) PO SCH (06:17)
[2018-09-15] MEDS: VERAPAMIL HCL 120 MG E.R. TABLET PO SCH (06:18)
[2018-09-15] MEDS: LACTATED RINGERS SOLUTION 1,000 ML IV SCH ×2 (06:19→16:35)
[2018-09-15 06:47] LABS: HEMATOCRIT 26.6 % (32.4-45.2); HEMOGLOBIN 9.4 GM/dL (10.7-15.3); MCHC 35.1 g/dl (32.0-36.0); MEAN CELL VOLUME 88.1 fl (80-96); MEAN PLT VOLUME 8.9 fl (7.5-11.1); PLATELET COUNT 158 K/MM3 (134-434); RBC 3.02 M/mm3 (3.60-5.2); RDW 15.1 % (11.6-15.6); WHITE BLOOD COUNT 5.8 K/mm3 (4.0-10.0)
[2018-09-15 07:18] LABS: ALBUMIN 2.4 g/dl (3.4-5.0); ALK PHOS 66 U/L (45-117); ANION GAP 8 MMOL/L (8-16); BILIRUBIN,TOTAL 0.5 mg/dL (0.2-1); BLOOD UREA NITROGEN 7 mg/dL (7-18); CALCIUM 8.1 mg/dL (8.5-10.1); CHLORIDE 103 mmol/L (98-107); CO2 28 mmol/L (21-32); CREATININE 0.5 mg/dL (0.55-1.3); GLUCOSE,RANDOM 67 mg/dL (74-106); MAGNESIUM 1.9 mg/dL (1.8-2.4); PHOSPHOROUS 3.2 mg/dL (2.5-4.9); POTASSIUM 3.8 mmol/L (3.5-5.1); SGOT/AST 32 U/L (15-37); SGPT/ALT 17 U/L (13-61); SODIUM 139 mmol/L (136-145); TOT PROT 5.6 g/dl (6.4-8.2)
--- NOTE | 2018-09-15 08:25 | PROC ---
Procedure Note Procedure: Hemovac drain removal. Hemovac taken off of suction and removed with tip intact. <5ml serosanguinous drainage in reservoir. Pt tolerated well. Pressure held x 5 mins with resolution of bleeding. Ostium covered with 4x4 and tegaderm.
[2018-09-15] MEDS: HYDROmorphone *PCA* 10MG/50ML DISP.SYRIN PCA SCH ×2 (11:01→23:26)
--- NOTE | 2018-09-15 11:06 | PN ---
Physical Exam: SUBJECTIVE: Patient seen and examined at bedside. no acute events overnight,. patient states her pain is around a 2/10, she did not have any tachycardic episodes overnight- she denies any CP/SOB/N/V fevers or chills. her drain is being pulled today OBJECTIVE: Vital Signs Period Temp Pulse Resp BP Sys/Jordan Pulse Ox Last 24 Hr 98.1 F-99.0 F 94-115 12-18 97-125/60-74 100-100 GENERAL: The patient is awake, alert, and fully oriented, in no acute distress. EYES: no scleral icterus. . NECK: no JVD, no lymphadenopathy LUNGS: CTA B/L; no rales, rhonchi or wheezing. HEART: Regular rate and rhythm, S1, S2 without murmur, rub or gallop. ABDOMEN: Soft, nontender, nondistended, normoactive bowel sounds, no guarding, no rebound, no hepatosplenomegaly, no masses. EXTREMITIES: 2+ pulses, warm, well-perfused, no edema slgiht pain at the incision site. NEUROLOGICAL: Cranial nerves II through XII grossly intact. Normal speech, gait not observed. SKIN: Warm, dry, normal turgor, no rashes or lesions noted Laboratory Results - last 24 hr 09/15/18 09/15/18 06:00 06:00 WBC 5.8 RBC 3.02 L Hgb 9.4 L Hct 26.6 L D MCV 88.1 MCH 31.0 MCHC 35.1 RDW 15.1 Plt Count 158 MPV 8.9 Sodium 139 Potassium 3.8 Chloride 103 Carbon Dioxide 28 Anion Gap 8 BUN 7 Creatinine 0.5 L Creat Clearance w eGFR > 60 Random Glucose 67 L Calcium 8.1 L Phosphorus 3.2 Magnesium 1.9 Total Bilirubin 0.5 AST 32 ALT 17 Alkaline Phosphatase 66 Total Protein 5.6 L Albumin 2.4 L Active Medications Generic Name Dose Route Start Last Admin Trade Name Freq PRN Reason Stop Dose Admin Acetaminophen 650 mg 09/14/18 20:44 09/14/18 21:06 Tylenol - PO 650 mg Q4H PRN Administration PAIN 1-3 Benzocaine/Menthol 1 each 09/14/18 14:53 09/14/18 17:02 Cepacol Lozenge - MM 1 each PRN PRN Administration SORE THROAT Diphenhydramine HCl 12.5 mg 09/14/18 14:53 09/15/18 01:38 Benadryl Injection - IVPUSH 12.5 mg ONCE PRN Administration FOR ITCHING Docusate Sodium 100 mg 09/14/18 14:53 Colace - PO BID PRN CONSTIPATION Duloxetine HCl 60 mg 09/14/18 22:00 09/14/18 21:08 Cymbalta - PO 60 mg HS HAY Administration Hydromorphone HCl 10 mg 09/14/18 18:00 09/14/18 14:55 Dilaudid Crystalizer Tender - REST ROOM MATRON 10 mg REST ROOM MATRON HAY Administration Protocol Lactated Ringer's 1,000 mls @ 125 mls/hr 09/14/18 14:53 09/15/18 06:19 Lactated Ringers Solution IV 125 mls/hr ASDIR HAY Administration Non-Formulary Medication 1 each 09/14/18 22:00 Patient's Own Med PO BID HAY Ondansetron HCl 4 mg 09/14/18 14:53 Zofran Injection IVPUSH Q6H PRN NAUSEA AND/OR VOMITING Oxycodone HCl 5 mg 09/14/18 14:53 Roxicodone - PO Q4H PRN PAIN LEVEL 1-5 Oxycodone HCl 10 mg 09/14/18 14:53 Roxicodone - PO Q4H PRN PAIN LEVEL 6 - 10 Senna 2 tab 09/14/18 14:53 09/14/18 21:12 Senna - PO 2 tab HS PRN Administration CONSTIPATION Verapamil HCl 240 mg 09/15/18 07:00 09/15/18 06:17 Calan Sr - PO 240 mg DAILY@0700 HAY Administration Verapamil HCl 120 mg 09/15/18 07:00 09/15/18 06:18 Calan Sr - PO 120 mg DAILY@0700 HAY Administration ASSESSMENT/PLAN: 43 y/o female with PMH of SVT, back pain, found to have severe lumbar spinal stenosis, L5-S1 lumbar intervertebral disc disorder with lower extremity radiculopathy is POD #4 from L5-S1 laminectomies, arthrodesis, lumbar interbody fusion with bone allograft. #L5-S1 laminectomies, arthrodesis, lumbar interbody fusion POD #4 -patient has not passed flatus yet; got the OK from Dr. Shein to advance to clear liquids -senna and colace for bowel regimen -patient used REST ROOM MATRON pump once overnight -incentive spirometer -Zofran PRN for nausea -Patient saw PT yesterday and she walked 75 feet; is requesting to go to [facility] upon discharge -remove east -Cymbalta for neuropathy #SVT -c/w verapamil 360 daily -monitor HR patients unit assistant is Dr. Felipe Howard in [place] F/E/N LR @125mls/hr monitor electrolytes clear liquid diet DVT PPX SCD's Problem List - Problems (1) Lumbar spinal stenosis Code(s): M48.061 - SPINAL STENOSIS, LUMBAR REGION WITHOUT NEUROGENIC TYESHA Visit type - Emergency Visit Emergency Visit: Yes ED Registration Date: 09/12/18 Care time: The patient presented to the Emergency Department on the above date and was hospitalized for further evaluation of their emergent condition. - New Patient This patient is new to me today: No - Critical Care Critical Care patient: No
[2018-09-15] MEDS ORDERED: PT OWN MED DRAWER 7, Y5N ONE ×2 (11:37→11:50)
[2018-09-15] MEDS: BENZOCAINE/MENTH/CETYLPYRD CL 1 EACH LOZENGE MM PRN (11:50)
[2018-09-15] MEDS: oxyCODONE HCL 5 MG TABLET PO PRN ×2 (12:15→16:32)
--- NOTE | 2018-09-15 12:28 | PN ---
Progress Note (short form) - Note Progress Note: Anesthesia/pain pt seen and examined S:Alert and awake comfortable O: Vital Signs Temperature 99.3 F 09/15/18 10:00 Pulse Rate 95 H 09/15/18 11:01 Respiratory Rate 18 09/15/18 11:01 Blood Pressure 106/59 L 09/15/18 11:31 O2 Sat by Pulse Oximetry (%) 100 09/14/18 21:00 CBC, BMP 09/15/18 06:00 09/15/18 06:00 A/P: Current Active Problems Lumbar spinal stenosis (Acute) s/p L5-S1 Fusion Doing well post op Started PO percocet. UI SOFTWARE DEVELOPER 1 more day for back up Continue current care Jack Hay MD
--- NOTE | 2018-09-15 12:34 | PN ---
Teaching Attending Note Name of Resident: Marguerite Venegas ATTENDING PHYSICIAN STATEMENT I saw and evaluated the patient. I reviewed the resident's note and discussed the case with the resident. I agree with the resident's findings and plan as documented. SUBJECTIVE:states pain is controlled. still have not passed gas. denies CP, SOB , fever, chills, N/V/C?D OBJECTIVE: Last Vital Signs Temp Pulse Resp BP Pulse Ox 99.3 F 95 H 18 106/59 L 100 09/15/18 10:00 09/15/18 11:01 09/15/18 11:01 09/15/18 11:31 09/14/18 21:00 General NAD CV S1 S2 RRR no murmur/rub/gallop Lungs CTA B/L no wheezing/rales/rhonchi abdomen soft NT/ND ASSESSMENT AND PLAN: 43yo F with PMH SVT and severe lumbar stenosis and radiculopathy who came in for laminectomy 1. Severe lumbar stenosis with radiulopathy- s/p L5, S1 laminectomies, L5, S1 osteotomies (facetectomies), L5-S1 posterior instrumentation, L5-S1 posterolateral arthrodesis, L5-S1 posterior lumbar interbody fusion, L5-S1 mechanical device, Bone allograft, Bone autograft, Bone marrow aspiration, and Complex wound closure 09/12. on COAL GASIFICATION TECHNICIAN pump. has not passed flatus. will d/w ortho if can advance diet despite no flatus as she has been NPO since surgery. also encouraged patient to request for po pain medications, she states she does not want percocet as its too strong however explained dilaudid is stronger than this. agreeable to try the medication. will try to d/c COAL GASIFICATION TECHNICIAN pump later today. hemovac in place. post-op abx. further management per ortho. PT eval. may require VARGAS on discharge 2. leukcytosis- likely stress induced. no signs of infection. now resolved. would hold further abx at this time 3. Normocytic anemia- likely dilutional. no signs of bleeding. no indication for transfusion at this time. will repeat Hgb 3. SVT-rate now controlled. likely induced from pain and anxiety. cont current medications. 4. DVT ppx- SCD. hold pharmacolgic anticoagulation in setting of recent surgery 5. PT eval today, may likely require VARGAS. SW notified
--- NOTE | 2018-09-15 16:01 | RAPID ---
<Vianey Borrego - Last Filed: 09/15/18 16:09> Physical Examination Vital Signs: Vital Signs Temperature 98.9 F 09/15/18 15:00 Pulse Rate 120 H 09/15/18 15:00 Respiratory Rate 18 09/15/18 15:00 Blood Pressure 109/63 09/15/18 15:00 O2 Sat by Pulse Oximetry (%) 100 09/15/18 09:00 Labs: CBC, BMP 09/15/18 06:00 09/15/18 06:00 Rapid Response - Rapid Response Assessment: Rapid response called on 4S. Pt c/o dizziness and nausea during BM while in bathroom. Team arrived to room BP 127/70 HR 116 bpm RR 16 02 sat 95% in NAD CTA b/l +tachycardic rate. no r/m/g pt assessed, returned to bed with assistance. c/o nausea. may be 2/2 NPO status , ?vasovagal episode, during valsava in bathrm. pt is s/p lumbar laminectomies, osteomies. primary team updated on status. recommend close monitoring, monitoring IVF, orthostatics, advance diet as tolerated <Boone Klein - Last Filed: 09/15/18 17:50> Physical Examination Vital Signs: Labs: CBC, BMP 09/15/18 06:00 09/15/18 06:00 Critical Care Total Critical Care Time (in minutes): 20
--- NOTE | 2018-09-15 17:53 | PATH ---
Surgical Pathology Report Patient Name: REKHA OWEN [facility]. Rec. #: [id number] /Age/Gender: 1975 (Age: 43) / F Account: [id number] Location: 4 SO PEDS/ADOL Taken: 09/12/2018 Received: 09/13/2018 Reported: 09/15/2018 Physicians: Gonzales Swann M.D. Specimen(s) Received DISC Clinical History Spondylosis Final Diagnosis DISC, L5-S1, POSTERIOR LUMBAR INTERBODY FUSION: BENIGN INTERVERTEBRAL DISC TISSUE. Electronically Signed Mary Beth Chaidez M.D. Gross Description Received in formalin labeled "disc," is a 4.0 x 3.0 x 0.7 cm aggregate of webb fragments of fibrocartilaginous tissue. A business center representative portion is submitted in one cassette. 09/14/2018 [facility]09/14/2018
[2018-09-15] MEDS ORDERED: MELATONIN 5 MG TABLETS PO ONE (21:26)
[2018-09-15] MEDS: DULoxetine HCL 30 MG CAPSULE.DR (FP) PO SCH (21:49)
[2018-09-15] MEDS: ACETAMINOPHEN 325 MG TABLET (FP) PO PRN (22:10)
[2018-09-16] MEDS ORDERED: PT OWN MED DRAWER 7, Y5N ONE (05:53)
[2018-09-16] MEDS: LACTATED RINGERS SOLUTION 1,000 ML IV SCH (05:57)
[2018-09-16] MEDS: VERAPAMIL HCL 240 MG E.R. TABLET (FP) PO SCH (06:00)
[2018-09-16] MEDS: VERAPAMIL HCL 120 MG E.R. TABLET PO SCH (06:00)
[2018-09-16 06:57] LABS: HEMATOCRIT 27.1 % (32.4-45.2); HEMOGLOBIN 8.8 GM/dL (10.7-15.3); MCH 28.9 pg (25.7-33.7); MCHC 32.5 g/dl (32.0-36.0); MEAN CELL VOLUME 88.8 fl (80-96); MEAN PLT VOLUME 8.9 fl (7.5-11.1); PLATELET COUNT 166 K/MM3 (134-434); RBC 3.05 M/mm3 (3.60-5.2); RDW 14.9 % (11.6-15.6); WHITE BLOOD COUNT 5.3 K/mm3 (4.0-10.0)
[2018-09-16 07:39] LABS: ANION GAP 9 MMOL/L (8-16); BLOOD UREA NITROGEN 6 mg/dL (7-18); CALCIUM 8.1 mg/dL (8.5-10.1); CHLORIDE 106 mmol/L (98-107); CO2 26 mmol/L (21-32); CREATININE 0.5 mg/dL (0.55-1.3); GLUCOSE,RANDOM 97 mg/dL (74-106); MAGNESIUM 2.1 mg/dL (1.8-2.4); PHOSPHOROUS 3.6 mg/dL (2.5-4.9); POTASSIUM 3.5 mmol/L (3.5-5.1); SODIUM 141 mmol/L (136-145)
[2018-09-16 12:51] LABS: HEMATOCRIT 28.7 % (32.4-45.2); HEMOGLOBIN 9.2 GM/dL (10.7-15.3); MCH 28.5 pg (25.7-33.7); MCHC 32.2 g/dl (32.0-36.0); MEAN CELL VOLUME 88.4 fl (80-96); MEAN PLT VOLUME 8.8 fl (7.5-11.1); PLATELET COUNT 191 K/MM3 (134-434); RBC 3.24 M/mm3 (3.60-5.2); RDW 14.5 % (11.6-15.6); WHITE BLOOD COUNT 5.7 K/mm3 (4.0-10.0)
[2018-09-16] MEDS: ACETAMINOPHEN 325 MG TABLET (FP) PO PRN (13:01)
--- NOTE | 2018-09-16 14:26 | PN ---
Teaching Attending Note Name of Resident: Marguerite Venegas ATTENDING PHYSICIAN STATEMENT I saw and evaluated the patient. I reviewed the resident's note and discussed the case with the resident. I agree with the resident's findings and plan as documented. SUBJECTIVE:asymptomatic. tolerating diet. states she is concerned she has a PE. denies Cp, SOB, fever, chills, N/V/C/D, hemoptysis had TINTER PHOTOGRAPH yesterday due to vasovagal during BM OBJECTIVE: Last Vital Signs Temp Pulse Resp BP Pulse Ox 98.3 F 96 H 18 119/76 97 09/16/18 10:00 09/16/18 10:00 09/16/18 10:00 09/16/18 10:00 09/16/18 09:00 General NAD CV S1 S2 RRR no murmur/rub/gallop Lungs CTA B/L no wheezing/rales/rhonchi abdomen soft NT/ND extremiteis no pedal edema or calf tenderness ASSESSMENT AND PLAN: 43yo F with PMH SVT and severe lumbar stenosis and radiculopathy who came in for laminectomy 1. Severe lumbar stenosis with radiulopathy- s/p L5, S1 laminectomies, L5, S1 osteotomies (facetectomies), L5-S1 posterior instrumentation, L5-S1 posterolateral arthrodesis, L5-S1 posterior lumbar interbody fusion, L5-S1 mechanical device, Bone allograft, Bone autograft, Bone marrow aspiration, and Complex wound closure 09/12. diet advanced and tolerating. +BM yesterday. pain controlled on oral percocet. ambulating well. can f/u [facility]o as outpatient. 2. TINTER PHOTOGRAPH due to vasovagal syncope- during a BM, states she was straining. no repeat episodes. no events noted on monitor. no further workup at this time 3. pt expresses concern for PE as she read online she can have PE after surgery and she has been tachycardic. as she has hx of SVT and she has been sinus tachycardia which has now improved and is controlled is more suggestive that it was likely pain induced. would not check ddimer as likely to be high given recent surgery. she is not hypoxic, no hemoptysis and no longer tachycardic. will check doppler for DVT. if negative will not continue workup. 4. leukcytosis- likely stress induced. no signs of infection. now resolved. would hold further abx at this time 5. Normocytic anemia- likely dilutional. acute drop in Hgb. repeat CBC is improved. no signs of bleeding. no indication for transfusion at this time. 6. SVT-rate now controlled. likely induced from pain and anxiety. cont current medications. 7. DVT ppx- SCD. hold pharmacolgic anticoagulation in setting of recent surgery 8. D/c home if doppler negative. percocet Rx sent for 3days I[facility] Reference #: [id number]
[2018-09-16 14:50] VITALS: BP 118/74; PULSE 104; TEMP 98.7
--- NOTE | 2018-09-16 16:42 | DS ---
Physical Exam: SUBJECTIVE: Patient seen and examined OBJECTIVE: Vital Signs Period Temp Pulse Resp BP Sys/Jordan Pulse Ox Last 24 Hr 9.2 F-100.3 F 89-110 18-19 113-128/66-80 97-97 PHYSICAL EXAM GENERAL: The patient is awake, alert, and fully oriented, in no acute distress. HEAD: Normal with no signs of trauma. EYES: PERRL, extraocular movements intact, sclera anicteric, conjunctiva clear. ENT: Ears normal, nares patent, oropharynx clear without exudates, moist mucous membranes. NECK: Trachea midline, full range of motion, supple. LUNGS: Breath sounds equal, clear to auscultation bilaterally, no wheezes, no crackles, no accessory muscle use. HEART: Regular rate and rhythm, S1, S2 without murmur, rub or gallop. ABDOMEN: Soft, nontender, nondistended, normoactive bowel sounds, no guarding, no rebound, no hepatosplenomegaly, no masses. EXTREMITIES: 2+ pulses, warm, well-perfused, no edema. NEUROLOGICAL: Cranial nerves II through XII grossly intact. Normal speech, gait not observed. PSYCH: Normal mood, normal affect. SKIN: Warm, dry, normal turgor, no rashes or lesions noted. LABS Laboratory Results - last 24 hr 09/16/18 09/16/18 09/16/18 05:50 05:50 12:30 WBC 5.3 5.7 RBC 3.05 L 3.24 L Hgb 8.8 L 9.2 L Hct 27.1 L 28.7 L MCV 88.8 88.4 MCH 28.9 28.5 MCHC 32.5 32.2 RDW 14.9 14.5 Plt Count 166 191 MPV 8.9 8.8 Sodium 141 Potassium 3.5 Chloride 106 Carbon Dioxide 26 Anion Gap 9 BUN 6 L Creatinine 0.5 L Creat Clearance w eGFR > 60 Random Glucose 97 Calcium 8.1 L Phosphorus 3.6 Magnesium 2.1 HOSPITAL COURSE: Date of Admission:09/12/18 patient presented to the ED with worsening back pain and radiculopathy symptoms found to c-spine surgery with wesly palm- no intraoperative or postoperative complications were had. patient remained in the hospital for a few days where she was seen by PT daily and she was discharged home with home PT and strcit follow up to see dr lyle Date of Discharge: 09/16/18 Minutes to complete discharge: 39 Discharge Summary Reason For Visit: SPONDYLOSIS W/O MYELOPATHY OR RADICULOPATHY, LUMBA Current Active Problems Lumbar spinal stenosis (Acute) SVT (supraventricular tachycardia) (Chronic) Condition: Stable - Instructions Diet, Activity, Other Instructions: You came to the emergency room with back pain, numbness, tingling requiring spine surgery Please resume all of your home medications: You are being discharged with percocet for pain. this medication can become habit forming. Use only for severe pain. It can also cause constipation. ensure you are having regular bowel movement. iF you require more medication for pain please call Dr Swann DO not take NSAID products for pain. (Ibuprofen, alieve, naproxen, etc). You can take tylenol as needed for low pain. No bending/lifting/twisting for 9-12 months. Please follow up with Dr. Swann within one week Please follow up with your display manager, Dr. Carr within one week Please follow up with your primary care physician within one week *if you begin to experience any back pain, numbness, tingling, chest pain shortness of breath please return to the emergency room immediately Referrals: Felipe Carr [Other] - 1 Week Gonzales Swann MD [Staff Physician] - 1 Week Disposition: HOME - Home Medications Comprehensive Discharge Medication List: Ambulatory Orders Verapamil HCl 360 mg PO DAILY 09/18/14 Duloxetine HCl [Cymbalta] 60 mg PO HS 09/06/18 Pentosan Polysulfate Sodium [Elmiron] 100 mg PO BID 09/06/18 traMADol HCL [Ultram -] 50 mg PO TID PRN 09/09/18 Oxycodone HCl/Acetaminophen [Percocet 5-325 mg Tablet] 1 tab PO Q4H PRN #18 tablet MDD 6 tabs 09/16/18 Problem List - Problems (1) Lumbar spinal stenosis Code(s): M48.061 - SPINAL STENOSIS, LUMBAR REGION WITHOUT NEUROGENIC TYESHA This patient is new to me today: No Emergency Visit: Yes ED Registration Date: 09/12/18 Care time: The patient presented to the Emergency Department on the above date and was hospitalized for further evaluation of their emergent condition. Critical Care patient: No - Discharge Referral Referred to [facility] Med P.C.: No
--- NOTE | 2018-12-02 20:34 | EKG ---
Test Reason : Blood Pressure : / mmHG Vent. Rate : 134 BPM Atrial Rate : 134 BPM P-R Int : 136 ms QRS Dur : 072 ms QT Int : 286 ms P-R-T Axes : 075 079 024 degrees QTc Int : 427 ms SINUS TACHYCARDIA NONSPECIFIC ST AND T WAVE ABNORMALITY ABNORMAL ECG NO PREVIOUS ECGS AVAILABLE Confirmed by PRIYA OLMOS, AUREA ([id number]) on 12/02/2018 8:33:48 PM Referred By: ALF Confirmed By:AUREA POWERS MD
== END 2018-09-16 18:53 | disposition home or self-care (01) | DRG 460 ==
LOC: JSAMEDAYSX 11:07 → JICU 23:29 → J4S 09-14 14:44
PROVIDERS: ADMIT Orthopaedic Surgery Orthopaedic Surgery of the Spine; ATTEND Internal Medicine
PROC: 0SG30AJ Fusion of Lumbosacral Joint with Interbody Fusion Device, Posterior Approach, Anterior Column, Open Approach (ICD-10-PCS; 2018-09-12)
PROC: 0ST40ZZ Resection of Lumbosacral Disc, Open Approach (ICD-10-PCS; 2018-09-12)
PROC: 01NB0ZZ Release Lumbar Nerve, Open Approach (ICD-10-PCS; 2018-09-12)
PROC: 0Q800ZZ Division of Lumbar Vertebra, Open Approach (ICD-10-PCS; 2018-09-12)
PROC: 07DR3ZZ Extraction of Iliac Bone Marrow, Percutaneous Approach (ICD-10-PCS; 2018-09-12)
PROC: 4A1004G Monitoring of Central Nervous Electrical Activity, Intraoperative, Open Approach (ICD-10-PCS; 2018-09-12)
PROC: 00NY0ZZ Release Lumbar Spinal Cord, Open Approach (ICD-10-PCS; principal; 2018-09-12 13:00)
DX: M48.062 Spinal stenosis, lumbar region with neurogenic claudication (principal); I47.1 Supraventricular tachycardia; M51.17 Intervertebral disc disorders with radiculopathy, lumbosacral region; D72.829 Elevated white blood cell count, unspecified; E66.9 Obesity, unspecified; Z68.32 Body mass index [BMI] 32.0-32.9, adult; F41.9 Anxiety disorder, unspecified
CPT/HCPCS: 36415; 76000-TC-FY; 80048; 80053; 83735; 84100; 84703; 85027; 86850; 86900; 86901; 88304-TC; 93005; 93010; 93970-TC; 94010; 94640; 94760; 97116-GP; 97162-GP; J0131; J1644